=== PATIENT | female | born 2005 | race Caucasian/White ===

== ENCOUNTER 2023-02-21 13:14 | Emergency (ER) | payer BC ==
[~2023-02-21] VITALS: Ht 172.7 cm; Wt 52.3 kg
[~2023-02-21 13:14] MED LIST: BACTRIM DS 8001 TAB PO; LEVAQUIN 5500 MG/TA1 PO; PROVENTIL0.09 MG/A1 IH; ZITHROMAX Z PA250 MG PO
[2023-02-21 13:18] VITALS: TEMP 97.7
[2023-02-21 15:40] VITALS: BP 115/60; PULSE 94
== END 2023-02-21 15:40 | disposition home or self-care (01) ==
LOC: COL.ER 13:14
DX: N39.0 Urinary tract infection, site not specified (principal); F17.290 Nicotine dependence, other tobacco product, uncomplicated; F17.210 Nicotine dependence, cigarettes, uncomplicated; Z28.310 Unvaccinated for COVID-19
CPT/HCPCS: J1885; J7030